=== PATIENT | female | born 1970 | race Two or more races ===

== ENCOUNTER 2019-01-24 15:58 | Emergency (ER) | payer SELFPAY ==
[~2019-01-24] VITALS: Ht 152.4 cm; Wt 70.9 kg
[2019-01-24 16:34] VITALS: BP 176/112
[2019-01-24] MEDS ORDERED: KETOROLAC 30 MG/1 ML ONE (16:50)
[2019-01-24] MEDS ORDERED: KETOROLAC 30 MG/1 ML IM ONE (17:00)
== END 2019-01-24 17:27 | disposition home or self-care (01) ==
LOC: ED 17:26
DX: M77.02 Medial epicondylitis, left elbow (principal); M77.01 Medial epicondylitis, right elbow
CPT/HCPCS: 96372; 99283; J1885